=== PATIENT | female | born 1955 | race Caucasian/White ===

== ENCOUNTER 2023-03-06 18:29 | Inpatient (IN) | payer MEDICARE ==
[2023-03-06] MEDS ORDERED: diphenhydrAMINE 12.5 MG/5 ML UDCUP SSW PRN (20:04)
[2023-03-06] MEDS ORDERED: Lidocaine Viscous Sol 2% 15 ml UD Cup SSW PRN (20:04)
[2023-03-06 20:16] VITALS: BMI 41.5
[2023-03-06] MEDS ORDERED: Mag-Al Plus 1200/1200/120 MG (30 mL) UDCUP SSW PRN (20:33)
[2023-03-06] MEDS: HYDROcodone/Acetaminophen 10/325 mg Tablet PO PRN (21:00)
[2023-03-06] MEDS ORDERED: Amiodarone 200 MG TAB PO SCH ×2 (21:00)
[2023-03-06] MEDS: Apixaban 5 MG TAB PO SCH (21:01)
[2023-03-06] MEDS: Gabapentin 300 MG CAP PO SCH (21:01)
[2023-03-06] MEDS: traZODone HCl 50 MG TAB PO SCH (21:01)
[2023-03-06] MEDS: Atorvastatin Calcium 10 MG TAB PO SCH (21:01)
[2023-03-06] MEDS ORDERED: Ciprofloxacin 500 MG TAB PO SCH ×2 (22:00)
[2023-03-06] MEDS: clonazePAM 0.5 MG TAB PO PRN (23:33)
[2023-03-07] MEDS: Ipratropium/Albuterol 3 ML NEB NEB SCH ×4 (00:09→18:08)
[2023-03-07] MEDS: HYDROcodone/Acetaminophen 10/325 mg Tablet PO PRN ×3 (04:46→21:12)
[2023-03-07] MEDS: Ciprofloxacin 500 MG TAB PO SCH ×2 (04:47→21:10)
[2023-03-07 05:30] LABS: #Basophils 0.1 thou/uL (0.0-0.2); #Lymphocytes 1.1 thou/uL (1.20-3.40); #Monocytes 0.5 thou/uL (0.11-0.59); #Neutrophils 5.5 thou/uL (1.40-6.50); %Basophils 1.5 % (0.0-1.0); %Eosinophils 0.5 % (0.0-10.0); %Lymphocytes 15.8 % (21.0-51.0); %Monocytes 6.2 % (0.0-10.0); %Neutrophils 75.9 % (42.0-75.0); Hemoglobin 10.5 g/dL (12.0-16.0); Mean Corpuscular HGB CONC 31.8 g/dL (32.0-36.0); Mean Corpuscular Hemoglobin 30.6 pg (27.0-31.0); Mean Corpuscular Volume 96.1 fl (78.0-98.0); Mean Platelet Volume 5.5 fL (7.4-10.4); Platelet Count 368 10x3/uL (130-400); RBC Distribution Width 12.3 % (11.5-14.5); Red Blood Cell (RBC) Count 3.44 mill/uL (4.20-5.40); White Blood Cell (WBC) Count 7.2 10x3/uL (4.8-10.8)
[2023-03-07 05:42] LABS: Anion Gap 14 mmol/L (10-20); BUN (Urea Nitrogen) 15 mg/dL (9.8-20.1); Calc. Creatinine Clearance 102 mL/min (70-130); Calcium 8.9 mg/dL (7.8-10.44); Carbon Dioxide 23 mmol/L (23-31); Chloride 110 mmol/L (98-107); Estimated GFR 69; Glucose 103 mg/dL (80-115); Potassium 4.7 mmol/L (3.5-5.1); Sodium 142 mmol/L (136-145)
[2023-03-07] MEDS ORDERED: Ciprofloxacin 500 MG TAB PO SCH (06:00)
[2023-03-07] MEDS ORDERED: CIPRO PO SCH (06:00)
[2023-03-07] MEDS: Acetaminophen 325 MG TAB PO PRN ×2 (09:27→18:09)
[2023-03-07] MEDS: Venlafaxine HCl 25 MG TAB PO SCH (09:29)
[2023-03-07] MEDS: Lisinopril 20 MG TAB PO SCH (09:29)
[2023-03-07] MEDS: Apixaban 5 MG TAB PO SCH ×2 (09:30→21:10)
[2023-03-07] MEDS: Aspirin Chewable 81 MG TAB PO SCH (09:30)
[2023-03-07] MEDS: Gabapentin 300 MG CAP PO SCH ×2 (09:31→21:11)
[2023-03-07] MEDS: Amiodarone 200 MG TAB PO SCH ×2 (09:31→21:10)
[2023-03-07] MEDS: Atorvastatin Calcium 10 MG TAB PO SCH (21:10)
[2023-03-07] MEDS: traZODone HCl 50 MG TAB PO SCH (21:11)
[2023-03-07] MEDS: Nystatin 500,000 UNITS/5 ML UDCUP SSW SCH (21:11)
[2023-03-08] MEDS: Ipratropium/Albuterol 3 ML NEB NEB SCH ×5 (00:12→18:51)
[2023-03-08] MEDS: clonazePAM 0.5 MG TAB PO PRN ×2 (01:05→13:52)
[2023-03-08] MEDS: Acetaminophen 325 MG TAB PO PRN ×2 (01:05→10:32)
[2023-03-08] MEDS: HYDROcodone/Acetaminophen 10/325 mg Tablet PO PRN ×3 (05:34→20:25)
[2023-03-08] MEDS: Ciprofloxacin 500 MG TAB PO SCH ×2 (06:18→20:28)
[2023-03-08] MEDS: Amiodarone 200 MG TAB PO SCH ×2 (10:26→20:27)
[2023-03-08] MEDS: Apixaban 5 MG TAB PO SCH ×2 (10:27→20:29)
[2023-03-08] MEDS: Gabapentin 300 MG CAP PO SCH ×2 (10:28→20:27)
[2023-03-08] MEDS: Aspirin Chewable 81 MG TAB PO SCH (10:28)
[2023-03-08] MEDS: Venlafaxine HCl 25 MG TAB PO SCH (10:29)
[2023-03-08] MEDS: Lisinopril 20 MG TAB PO SCH (10:30)
[2023-03-08] MEDS: Nystatin 500,000 UNITS/5 ML UDCUP SSW SCH ×4 (13:22→21:05)
[2023-03-08] MEDS: Cyclobenzaprine 10 MG TAB PO PRN (13:51)
[2023-03-08] MEDS: Atorvastatin Calcium 10 MG TAB PO SCH (20:29)
[2023-03-08] MEDS: traZODone HCl 50 MG TAB PO SCH (20:29)
[2023-03-09] MEDS: Cyclobenzaprine 10 MG TAB PO PRN (02:56)
[2023-03-09] MEDS: clonazePAM 0.5 MG TAB PO PRN (02:56)
[2023-03-09] MEDS: Ipratropium/Albuterol 3 ML NEB NEB SCH ×4 (02:58→20:00)
[2023-03-09] MEDS: Ciprofloxacin 500 MG TAB PO SCH ×2 (05:47→20:09)
[2023-03-09] MEDS ORDERED: FLU VACC QS2023(65UP)/MF59C/PF 60 MCG/0.5 ML SYRINGE IM ONE (09:00)
[2023-03-09] MEDS ORDERED: Metoprolol Tartrate 25 MG TAB PO SCH ×3 (10:00→21:00)
[2023-03-09] MEDS: Venlafaxine HCl 25 MG TAB PO SCH (10:25)
[2023-03-09] MEDS: HYDROcodone/Acetaminophen 10/325 mg Tablet PO SCH ×3 (10:44→22:43)
[2023-03-09] MEDS: Gabapentin 300 MG CAP PO SCH ×2 (10:45→20:34)
[2023-03-09] MEDS: Apixaban 5 MG TAB PO SCH ×2 (10:46→20:29)
[2023-03-09] MEDS: Amiodarone 200 MG TAB PO SCH ×2 (10:46→20:28)
[2023-03-09] MEDS: Lisinopril 20 MG TAB PO SCH (10:47)
[2023-03-09] MEDS: Nystatin 500,000 UNITS/5 ML UDCUP SSW SCH ×4 (10:47→20:27)
[2023-03-09] MEDS: Aspirin Chewable 81 MG TAB PO SCH (10:47)
[2023-03-09] MEDS: Acetaminophen 325 MG TAB PO PRN (20:00)
[2023-03-09] MEDS: traZODone HCl 50 MG TAB PO SCH (20:27)
[2023-03-09] MEDS: Metoprolol Tartrate 25 MG TAB PO SCH (20:28)
[2023-03-09] MEDS: Atorvastatin Calcium 10 MG TAB PO SCH (20:28)
[2023-03-10] MEDS: Acetaminophen 325 MG TAB PO PRN ×2 (00:39→18:11)
[2023-03-10] MEDS: Ipratropium/Albuterol 3 ML NEB NEB SCH ×4 (01:10→20:46)
[2023-03-10] MEDS: clonazePAM 0.5 MG TAB PO PRN (02:59)
[2023-03-10] MEDS: Cyclobenzaprine 10 MG TAB PO PRN ×2 (02:59→16:48)
[2023-03-10] MEDS: HYDROcodone/Acetaminophen 10/325 mg Tablet PO SCH ×4 (04:06→22:08)
[2023-03-10] MEDS ORDERED: HYDROcodone/Acetaminophen 10/325 mg Tablet PO PRN (09:27)
[2023-03-10] MEDS: Gabapentin 300 MG CAP PO SCH ×2 (09:55→20:38)
[2023-03-10] MEDS: Nystatin 500,000 UNITS/5 ML UDCUP SSW SCH ×4 (09:55→20:38)
[2023-03-10] MEDS: Ondansetron ODT 4 MG TAB PO PRN (09:56)
[2023-03-10] MEDS: Lisinopril 20 MG TAB PO SCH (09:56)
[2023-03-10] MEDS: Amiodarone 200 MG TAB PO SCH ×2 (09:56→20:40)
[2023-03-10] MEDS: Apixaban 5 MG TAB PO SCH ×2 (09:56→20:39)
[2023-03-10] MEDS: Metoprolol Tartrate 25 MG TAB PO SCH ×2 (09:56→20:40)
[2023-03-10] MEDS: Aspirin Chewable 81 MG TAB PO SCH (09:57)
[2023-03-10] MEDS ORDERED: Fluticasone Propionate Nasal Spray 16 gm Bottle NASAL SCH (12:30)
[2023-03-10] MEDS: traZODone HCl 50 MG TAB PO SCH (20:39)
[2023-03-10] MEDS: Atorvastatin Calcium 10 MG TAB PO SCH (20:40)
[2023-03-11] MEDS: clonazePAM 0.5 MG TAB PO PRN ×3 (00:23→20:43)
[2023-03-11] MEDS: Cyclobenzaprine 10 MG TAB PO PRN ×2 (00:23→08:58)
[2023-03-11] MEDS: Ipratropium/Albuterol 3 ML NEB NEB SCH ×4 (00:27→17:21)
[2023-03-11] MEDS: Acetaminophen 325 MG TAB PO PRN (00:32)
[2023-03-11] MEDS: HYDROcodone/Acetaminophen 10/325 mg Tablet PO SCH ×4 (03:42→21:42)
[2023-03-11] MEDS: Gabapentin 300 MG CAP PO SCH ×2 (08:55→20:43)
[2023-03-11] MEDS: Metoprolol Tartrate 25 MG TAB PO SCH ×2 (08:56→20:42)
[2023-03-11] MEDS: Lisinopril 20 MG TAB PO SCH (08:57)
[2023-03-11] MEDS: Apixaban 5 MG TAB PO SCH ×2 (08:57→20:43)
[2023-03-11] MEDS: Amiodarone 200 MG TAB PO SCH ×2 (08:57→20:43)
[2023-03-11] MEDS: Nystatin 500,000 UNITS/5 ML UDCUP SSW SCH ×4 (08:58→20:43)
[2023-03-11] MEDS: Aspirin Chewable 81 MG TAB PO SCH (08:58)
[2023-03-11] MEDS: Fluticasone Propionate Nasal Spray 16 gm Bottle NASAL SCH (09:00)
[2023-03-11] MEDS: traZODone HCl 50 MG TAB PO SCH (20:42)
[2023-03-11] MEDS: Atorvastatin Calcium 10 MG TAB PO SCH (20:42)
[2023-03-12] MEDS: Ipratropium/Albuterol 3 ML NEB NEB SCH ×4 (00:04→18:08)
[2023-03-12] MEDS: HYDROcodone/Acetaminophen 10/325 mg Tablet PO SCH ×4 (03:04→21:14)
[2023-03-12] MEDS: Lisinopril 20 MG TAB PO SCH (09:06)
[2023-03-12] MEDS: Apixaban 5 MG TAB PO SCH ×2 (09:06→21:16)
[2023-03-12] MEDS: Gabapentin 300 MG CAP PO SCH ×2 (09:06→21:15)
[2023-03-12] MEDS: Metoprolol Tartrate 25 MG TAB PO SCH ×2 (09:06→21:15)
[2023-03-12] MEDS: Fluticasone Propionate Nasal Spray 16 gm Bottle NASAL SCH (09:07)
[2023-03-12] MEDS: Aspirin Chewable 81 MG TAB PO SCH (09:07)
[2023-03-12] MEDS: Nystatin 500,000 UNITS/5 ML UDCUP SSW SCH ×4 (09:08→21:13)
[2023-03-12] MEDS: Amiodarone 200 MG TAB PO SCH ×2 (09:08→21:15)
[2023-03-12 12:43] LABS: #Basophils 0.1 thou/uL (0.0-0.2); #Eosinphils 0.4 thou/uL (0.0-0.7); #Lymphocytes 2.1 thou/uL (1.20-3.40); #Monocytes 0.8 thou/uL (0.11-0.59); #Neutrophils 5.2 thou/uL (1.40-6.50); %Basophils 0.7 % (0.0-1.0); %Eosinophils 4.5 % (0.0-10.0); %Lymphocytes 24.3 % (21.0-51.0); %Neutrophils 61.5 % (42.0-75.0); Hematocrit 28.4 % (36.0-47.0); Hemoglobin 9.2 g/dL (12.0-16.0); Mean Corpuscular HGB CONC 32.3 g/dL (32.0-36.0); Mean Corpuscular Hemoglobin 30.7 pg (27.0-31.0); Mean Corpuscular Volume 95.3 fl (78.0-98.0); Mean Platelet Volume 5.5 fL (7.4-10.4); Platelet Count 306 10x3/uL (130-400); RBC Distribution Width 12.5 % (11.5-14.5); Red Blood Cell (RBC) Count 2.98 mill/uL (4.20-5.40); White Blood Cell (WBC) Count 8.5 10x3/uL (4.8-10.8)
[2023-03-12 12:59] LABS: Anion Gap 14 mmol/L (10-20); BUN (Urea Nitrogen) 10 mg/dL (9.8-20.1); Calc. Creatinine Clearance 124 mL/min (70-130); Calcium 8.2 mg/dL (7.8-10.44); Carbon Dioxide 26 mmol/L (23-31); Chloride 104 mmol/L (98-107); Estimated GFR 88; Glucose 142 mg/dL (80-115); Potassium 3.2 mmol/L (3.5-5.1); Sodium 141 mmol/L (136-145)
[2023-03-12] MEDS ORDERED: Potassium Chloride 20 MEQ TAB PO SCH (15:30)
[2023-03-12] MEDS: traZODone HCl 50 MG TAB PO SCH (21:14)
[2023-03-12] MEDS: Atorvastatin Calcium 10 MG TAB PO SCH (21:15)
[2023-03-13] MEDS: Ipratropium/Albuterol 3 ML NEB NEB SCH ×4 (01:47→21:13)
[2023-03-13] MEDS: HYDROcodone/Acetaminophen 10/325 mg Tablet PO SCH ×4 (04:59→21:21)
[2023-03-13] MEDS: Metoprolol Tartrate 25 MG TAB PO SCH ×2 (09:21→21:22)
[2023-03-13] MEDS: Aspirin Chewable 81 MG TAB PO SCH (09:21)
[2023-03-13] MEDS: Lisinopril 20 MG TAB PO SCH (09:21)
[2023-03-13] MEDS: Fluticasone Propionate Nasal Spray 16 gm Bottle NASAL SCH (09:21)
[2023-03-13] MEDS: Gabapentin 300 MG CAP PO SCH ×2 (09:22→21:22)
[2023-03-13] MEDS: Potassium Chloride 20 MEQ TAB PO SCH (09:23)
[2023-03-13] MEDS: Amiodarone 200 MG TAB PO SCH ×2 (09:23→21:23)
[2023-03-13] MEDS: Apixaban 5 MG TAB PO SCH ×2 (09:23→21:22)
[2023-03-13] MEDS: Nystatin 500,000 UNITS/5 ML UDCUP SSW SCH ×4 (09:24→21:23)
[2023-03-13] MEDS: traZODone HCl 50 MG TAB PO SCH (21:21)
[2023-03-13] MEDS: Amoxicillin/Potassium Clav 875 MG TAB PO SCH (21:21)
[2023-03-13] MEDS: clonazePAM 0.5 MG TAB PO PRN (21:21)
[2023-03-13] MEDS: Atorvastatin Calcium 10 MG TAB PO SCH (21:22)
[2023-03-13] MEDS: Guaifenesin DM 100-10/5 ML UDCUP PO PRN (22:04)
[2023-03-14] MEDS: Ipratropium/Albuterol 3 ML NEB NEB SCH ×4 (01:34→18:22)
[2023-03-14] MEDS: HYDROcodone/Acetaminophen 10/325 mg Tablet PO SCH ×4 (04:13→21:23)
[2023-03-14] MEDS: Fluticasone Propionate Nasal Spray 16 gm Bottle NASAL SCH (09:51)
[2023-03-14] MEDS: Amoxicillin/Potassium Clav 875 MG TAB PO SCH ×2 (09:53→21:06)
[2023-03-14] MEDS: Lisinopril 20 MG TAB PO SCH (09:54)
[2023-03-14] MEDS: Saccharomyces boulardii 250 MG CAP PO SCH (09:54)
[2023-03-14] MEDS: Apixaban 5 MG TAB PO SCH ×2 (09:54→21:07)
[2023-03-14] MEDS: Aspirin Chewable 81 MG TAB PO SCH (09:54)
[2023-03-14] MEDS: Gabapentin 300 MG CAP PO SCH ×2 (09:57→21:23)
[2023-03-14] MEDS: Potassium Chloride 20 MEQ TAB PO SCH (09:57)
[2023-03-14] MEDS: Amiodarone 200 MG TAB PO SCH (09:57)
[2023-03-14] MEDS: Nystatin 500,000 UNITS/5 ML UDCUP SSW SCH ×4 (09:58→21:06)
[2023-03-14] MEDS: Metoprolol Tartrate 25 MG TAB PO SCH ×2 (09:58→21:06)
[2023-03-14] MEDS: Ketorolac Tromethamine 60 MG/2 ML VIAL IM PRN (13:30)
[2023-03-14] MEDS: traZODone HCl 50 MG TAB PO SCH (21:06)
[2023-03-14] MEDS: Atorvastatin Calcium 10 MG TAB PO SCH (21:07)
[2023-03-15] MEDS: Acetaminophen 325 MG TAB PO PRN (01:52)
[2023-03-15] MEDS: Ipratropium/Albuterol 3 ML NEB NEB SCH ×5 (01:53→18:50)
[2023-03-15] MEDS: clonazePAM 0.5 MG TAB PO PRN ×2 (01:53→21:20)
[2023-03-15] MEDS: HYDROcodone/Acetaminophen 10/325 mg Tablet PO SCH ×4 (04:54→22:16)
[2023-03-15] MEDS ORDERED: Amiodarone 200 MG TAB PO SCH (09:00)
[2023-03-15] MEDS: Fluticasone Propionate Nasal Spray 16 gm Bottle NASAL SCH ×2 (09:25→21:21)
[2023-03-15] MEDS: Apixaban 5 MG TAB PO SCH ×2 (09:47→21:20)
[2023-03-15] MEDS: Saccharomyces boulardii 250 MG CAP PO SCH (09:47)
[2023-03-15] MEDS: Potassium Chloride 20 MEQ TAB PO SCH (09:47)
[2023-03-15] MEDS: Nystatin 500,000 UNITS/5 ML UDCUP SSW SCH ×4 (09:47→21:19)
[2023-03-15] MEDS: Metoprolol Tartrate 25 MG TAB PO SCH ×2 (09:47→21:20)
[2023-03-15] MEDS: Amoxicillin/Potassium Clav 875 MG TAB PO SCH ×2 (09:47→21:20)
[2023-03-15] MEDS: Lisinopril 20 MG TAB PO SCH (09:48)
[2023-03-15] MEDS: Gabapentin 300 MG CAP PO SCH ×2 (09:48→21:20)
[2023-03-15] MEDS: Aspirin Chewable 81 MG TAB PO SCH (09:49)
[2023-03-15] MEDS: Amiodarone 200 MG TAB PO SCH (09:49)
[2023-03-15] MEDS: Ketorolac Tromethamine 60 MG/2 ML VIAL IM PRN (10:00)
[2023-03-15] MEDS: traZODone HCl 50 MG TAB PO SCH (21:19)
[2023-03-15] MEDS: Atorvastatin Calcium 10 MG TAB PO SCH (21:20)
[2023-03-15] MEDS: Guaifenesin DM 100-10/5 ML UDCUP PO PRN (21:27)
[2023-03-16] MEDS: Ipratropium/Albuterol 3 ML NEB NEB SCH ×4 (01:25→22:55)
[2023-03-16] MEDS: Acetaminophen 325 MG TAB PO PRN ×2 (01:25→13:47)
[2023-03-16] MEDS: Cyclobenzaprine 10 MG TAB PO PRN ×2 (01:26→13:47)
[2023-03-16] MEDS: HYDROcodone/Acetaminophen 10/325 mg Tablet PO SCH ×4 (04:04→22:57)
[2023-03-16 08:41] LABS: Potassium 3.8 mmol/L (3.5-5.1)
[2023-03-16] MEDS: Aspirin Chewable 81 MG TAB PO SCH (09:08)
[2023-03-16] MEDS: Gabapentin 300 MG CAP PO SCH ×2 (09:08→22:58)
[2023-03-16] MEDS: Potassium Chloride 20 MEQ TAB PO SCH (09:08)
[2023-03-16] MEDS: Apixaban 5 MG TAB PO SCH ×2 (09:08→22:58)
[2023-03-16] MEDS: Saccharomyces boulardii 250 MG CAP PO SCH (09:08)
[2023-03-16] MEDS: Metoprolol Tartrate 25 MG TAB PO SCH ×2 (09:08→22:59)
[2023-03-16] MEDS: Lisinopril 20 MG TAB PO SCH (09:09)
[2023-03-16] MEDS: Amoxicillin/Potassium Clav 875 MG TAB PO SCH ×2 (09:09→22:57)
[2023-03-16] MEDS: Amiodarone 200 MG TAB PO SCH (09:09)
[2023-03-16] MEDS: Nystatin 500,000 UNITS/5 ML UDCUP SSW SCH ×4 (09:10→22:56)
[2023-03-16] MEDS: Fluticasone Propionate Nasal Spray 16 gm Bottle NASAL SCH ×2 (09:10→22:56)
[2023-03-16] MEDS: Guaifenesin DM 100-10/5 ML UDCUP PO PRN (13:35)
[2023-03-16] MEDS: Ondansetron ODT 4 MG TAB PO PRN (22:55)
[2023-03-16] MEDS: traZODone HCl 50 MG TAB PO SCH (22:57)
[2023-03-16] MEDS: Atorvastatin Calcium 10 MG TAB PO SCH (22:58)
[2023-03-17] MEDS: HYDROcodone/Acetaminophen 10/325 mg Tablet PO SCH ×4 (06:45→21:24)
[2023-03-17] MEDS: Ipratropium/Albuterol 3 ML NEB NEB SCH ×4 (06:45→19:25)
[2023-03-17] MEDS: Fluticasone Propionate Nasal Spray 16 gm Bottle NASAL SCH ×2 (09:10→21:23)
[2023-03-17] MEDS: Potassium Chloride 20 MEQ TAB PO SCH (09:11)
[2023-03-17] MEDS: Gabapentin 300 MG CAP PO SCH ×2 (09:12→21:26)
[2023-03-17] MEDS: Apixaban 5 MG TAB PO SCH ×2 (09:13→21:24)
[2023-03-17] MEDS: Amiodarone 200 MG TAB PO SCH (09:13)
[2023-03-17] MEDS: Metoprolol Tartrate 25 MG TAB PO SCH ×2 (09:13→21:39)
[2023-03-17] MEDS: Saccharomyces boulardii 250 MG CAP PO SCH (09:13)
[2023-03-17] MEDS: Lisinopril 20 MG TAB PO SCH (09:13)
[2023-03-17] MEDS: Aspirin Chewable 81 MG TAB PO SCH (09:13)
[2023-03-17] MEDS: Amoxicillin/Potassium Clav 875 MG TAB PO SCH ×2 (09:14→21:24)
[2023-03-17] MEDS: Nystatin 500,000 UNITS/5 ML UDCUP SSW SCH ×4 (09:26→21:29)
[2023-03-17] MEDS: Guaifenesin DM 100-10/5 ML UDCUP PO PRN ×2 (16:26→21:39)
[2023-03-17] MEDS: Atorvastatin Calcium 10 MG TAB PO SCH (21:23)
[2023-03-17] MEDS: traZODone HCl 50 MG TAB PO SCH (21:24)
[2023-03-18] MEDS: Ipratropium/Albuterol 3 ML NEB NEB SCH ×4 (01:00→18:51)
[2023-03-18] MEDS: HYDROcodone/Acetaminophen 10/325 mg Tablet PO SCH ×4 (04:57→20:58)
[2023-03-18 05:12] LABS: Hematocrit 27.1 % (36.0-47.0); Hemoglobin 8.8 g/dL (12.0-16.0); Platelet Count 451 10x3/uL (130-400)
[2023-03-18] MEDS: Nystatin 500,000 UNITS/5 ML UDCUP SSW SCH ×4 (09:00→21:01)
[2023-03-18] MEDS: Fluticasone Propionate Nasal Spray 16 gm Bottle NASAL SCH ×2 (10:51→21:36)
[2023-03-18] MEDS: Gabapentin 300 MG CAP PO SCH ×2 (10:53→20:56)
[2023-03-18] MEDS: Metoprolol Tartrate 25 MG TAB PO SCH ×2 (10:54→20:59)
[2023-03-18] MEDS: Amiodarone 200 MG TAB PO SCH (10:54)
[2023-03-18] MEDS: Lisinopril 20 MG TAB PO SCH (10:54)
[2023-03-18] MEDS: Aspirin Chewable 81 MG TAB PO SCH (10:54)
[2023-03-18] MEDS: Potassium Chloride 20 MEQ TAB PO SCH (10:54)
[2023-03-18] MEDS: Amoxicillin/Potassium Clav 875 MG TAB PO SCH ×2 (10:54→20:57)
[2023-03-18] MEDS: Apixaban 5 MG TAB PO SCH ×2 (10:54→21:35)
[2023-03-18] MEDS: Saccharomyces boulardii 250 MG CAP PO SCH (10:54)
[2023-03-18] MEDS: Guaifenesin DM 100-10/5 ML UDCUP PO PRN ×2 (15:33→22:13)
[2023-03-18] MEDS: Atorvastatin Calcium 10 MG TAB PO SCH (20:59)
[2023-03-18] MEDS: clonazePAM 0.5 MG TAB PO PRN (21:00)
[2023-03-18] MEDS: Cyclobenzaprine 10 MG TAB PO PRN (21:00)
[2023-03-18] MEDS: traZODone HCl 50 MG TAB PO SCH (21:36)
[2023-03-18] MEDS: Ondansetron ODT 4 MG TAB PO PRN (22:13)
[2023-03-19] MEDS: Ipratropium/Albuterol 3 ML NEB NEB SCH ×4 (00:55→20:09)
[2023-03-19] MEDS: HYDROcodone/Acetaminophen 10/325 mg Tablet PO SCH ×4 (04:17→21:45)
[2023-03-19] MEDS: Amiodarone 200 MG TAB PO SCH (10:03)
[2023-03-19] MEDS: Amoxicillin/Potassium Clav 875 MG TAB PO SCH ×2 (10:04→21:45)
[2023-03-19] MEDS: Potassium Chloride 20 MEQ TAB PO SCH (10:04)
[2023-03-19] MEDS: Apixaban 5 MG TAB PO SCH ×2 (10:04→21:46)
[2023-03-19] MEDS: Aspirin Chewable 81 MG TAB PO SCH (10:04)
[2023-03-19] MEDS: Gabapentin 300 MG CAP PO SCH ×2 (10:05→21:46)
[2023-03-19] MEDS: Saccharomyces boulardii 250 MG CAP PO SCH (10:05)
[2023-03-19] MEDS: Fluticasone Propionate Nasal Spray 16 gm Bottle NASAL SCH ×2 (10:06→21:47)
[2023-03-19] MEDS: Metoprolol Tartrate 25 MG TAB PO SCH ×2 (10:06→21:46)
[2023-03-19] MEDS: Nystatin 500,000 UNITS/5 ML UDCUP SSW SCH ×4 (10:07→21:47)
[2023-03-19] MEDS: Lisinopril 20 MG TAB PO SCH (10:17)
[2023-03-19] MEDS: clonazePAM 0.5 MG TAB PO PRN ×2 (10:20→20:10)
[2023-03-19] MEDS: Guaifenesin DM 100-10/5 ML UDCUP PO PRN (14:34)
[2023-03-19] MEDS: traZODone HCl 50 MG TAB PO SCH (21:46)
[2023-03-19] MEDS: Atorvastatin Calcium 10 MG TAB PO SCH (21:46)
[2023-03-20] MEDS: Ipratropium/Albuterol 3 ML NEB NEB SCH ×4 (01:15→23:31)
[2023-03-20] MEDS: HYDROcodone/Acetaminophen 10/325 mg Tablet PO SCH ×4 (04:12→22:14)
[2023-03-20] MEDS: Amiodarone 200 MG TAB PO SCH (08:30)
[2023-03-20] MEDS: Amoxicillin/Potassium Clav 875 MG TAB PO SCH ×2 (08:30→22:13)
[2023-03-20] MEDS: Apixaban 5 MG TAB PO SCH ×2 (08:31→22:13)
[2023-03-20] MEDS: Aspirin Chewable 81 MG TAB PO SCH (08:31)
[2023-03-20] MEDS: Gabapentin 300 MG CAP PO SCH ×2 (08:31→22:13)
[2023-03-20] MEDS: Metoprolol Tartrate 25 MG TAB PO SCH ×2 (08:32→22:13)
[2023-03-20] MEDS: Saccharomyces boulardii 250 MG CAP PO SCH (08:32)
[2023-03-20] MEDS: Nystatin 500,000 UNITS/5 ML UDCUP SSW SCH ×4 (08:32→22:12)
[2023-03-20] MEDS: Lisinopril 20 MG TAB PO SCH (08:32)
[2023-03-20] MEDS: Potassium Chloride 20 MEQ TAB PO SCH (08:33)
[2023-03-20] MEDS: Fluticasone Propionate Nasal Spray 16 gm Bottle NASAL SCH ×2 (08:34→22:12)
[2023-03-20] MEDS: Guaifenesin DM 100-10/5 ML UDCUP PO PRN ×2 (11:10→17:34)
[2023-03-20] MEDS: Ketorolac Tromethamine 60 MG/2 ML VIAL IM PRN (13:30)
[2023-03-20] MEDS ORDERED: Venlafaxine HCl XR 75 MG CAP PO SCH (17:00)
[2023-03-20] MEDS: traZODone HCl 50 MG TAB PO SCH (22:12)
[2023-03-20] MEDS: Atorvastatin Calcium 10 MG TAB PO SCH (22:13)
[2023-03-20] MEDS: Cyclobenzaprine 10 MG TAB PO PRN (22:13)
[2023-03-20] MEDS: clonazePAM 0.5 MG TAB PO PRN (22:14)
[2023-03-21 05:01] LABS: #Basophils 0.1 thou/uL (0.0-0.2); #Eosinphils 0.4 thou/uL (0.0-0.7); #Monocytes 0.7 thou/uL (0.11-0.59); #Neutrophils 3.7 thou/uL (1.40-6.50); %Eosinophils 4.7 % (0.0-10.0); %Lymphocytes 38.1 % (21.0-51.0); %Monocytes 8.8 % (0.0-10.0); %Neutrophils 47.4 % (42.0-75.0); Hematocrit 28.9 % (36.0-47.0); Hemoglobin 9.3 g/dL (12.0-16.0); Mean Corpuscular HGB CONC 32.2 g/dL (32.0-36.0); Mean Corpuscular Hemoglobin 30.3 pg (27.0-31.0); Mean Corpuscular Volume 94.1 fl (78.0-98.0); Mean Platelet Volume 5.1 fL (7.4-10.4); Platelet Count 467 10x3/uL (130-400); RBC Distribution Width 13.1 % (11.5-14.5); Red Blood Cell (RBC) Count 3.07 mill/uL (4.20-5.40); White Blood Cell (WBC) Count 7.9 10x3/uL (4.8-10.8)
[2023-03-21] MEDS: HYDROcodone/Acetaminophen 10/325 mg Tablet PO SCH ×4 (06:42→21:52)
[2023-03-21] MEDS: Ipratropium/Albuterol 3 ML NEB NEB SCH ×5 (06:44→21:52)
[2023-03-21] MEDS: Saccharomyces boulardii 250 MG CAP PO SCH ×2 (10:36→10:38)
[2023-03-21] MEDS: Gabapentin 300 MG CAP PO SCH ×2 (10:37→20:49)
[2023-03-21] MEDS: Amoxicillin/Potassium Clav 875 MG TAB PO SCH ×2 (10:38→20:55)
[2023-03-21] MEDS: Aspirin Chewable 81 MG TAB PO SCH (10:38)
[2023-03-21] MEDS: Potassium Chloride 20 MEQ TAB PO SCH (10:38)
[2023-03-21] MEDS: Amiodarone 200 MG TAB PO SCH (10:38)
[2023-03-21] MEDS: Metoprolol Tartrate 25 MG TAB PO SCH ×2 (10:38→20:49)
[2023-03-21] MEDS: Apixaban 5 MG TAB PO SCH ×2 (10:39→20:48)
[2023-03-21] MEDS: Fluticasone Propionate Nasal Spray 16 gm Bottle NASAL SCH ×2 (10:40→21:52)
[2023-03-21] MEDS: Nystatin 500,000 UNITS/5 ML UDCUP SSW SCH ×4 (10:40→20:53)
[2023-03-21] MEDS: Venlafaxine HCl XR 75 MG CAP PO SCH (10:40)
[2023-03-21] MEDS: Lisinopril 20 MG TAB PO SCH (10:41)
[2023-03-21] MEDS: clonazePAM 0.5 MG TAB PO PRN ×2 (10:45→21:52)
[2023-03-21] MEDS: Cyclobenzaprine 10 MG TAB PO PRN ×2 (10:56→16:29)
[2023-03-21] MEDS: Guaifenesin DM 100-10/5 ML UDCUP PO PRN ×2 (11:19→21:52)
[2023-03-21] MEDS: traZODone HCl 50 MG TAB PO SCH (20:48)
[2023-03-21] MEDS: Atorvastatin Calcium 10 MG TAB PO SCH (20:49)
[2023-03-22] MEDS: Ipratropium/Albuterol 3 ML NEB NEB SCH ×4 (04:23→22:13)
[2023-03-22] MEDS: HYDROcodone/Acetaminophen 10/325 mg Tablet PO SCH ×4 (04:24→22:03)
[2023-03-22] MEDS: Aspirin Chewable 81 MG TAB PO SCH (09:39)
[2023-03-22] MEDS: Venlafaxine HCl XR 75 MG CAP PO SCH (09:40)
[2023-03-22] MEDS: Gabapentin 300 MG CAP PO SCH ×2 (09:40→20:39)
[2023-03-22] MEDS: Amiodarone 200 MG TAB PO SCH (09:40)
[2023-03-22] MEDS: Apixaban 5 MG TAB PO SCH ×2 (09:40→20:40)
[2023-03-22] MEDS: Fluticasone Propionate Nasal Spray 16 gm Bottle NASAL SCH ×2 (09:41→20:42)
[2023-03-22] MEDS: Nystatin 500,000 UNITS/5 ML UDCUP SSW SCH ×4 (09:41→20:38)
[2023-03-22] MEDS: Lisinopril 20 MG TAB PO SCH (09:41)
[2023-03-22] MEDS: Metoprolol Tartrate 25 MG TAB PO SCH ×2 (09:41→20:40)
[2023-03-22] MEDS: Saccharomyces boulardii 250 MG CAP PO SCH (09:42)
[2023-03-22] MEDS: Potassium Chloride 20 MEQ TAB PO SCH (09:43)
[2023-03-22] MEDS: Guaifenesin DM 100-10/5 ML UDCUP PO PRN ×2 (09:50→16:22)
[2023-03-22] MEDS: Amoxicillin/Potassium Clav 875 MG TAB PO SCH ×2 (09:55→20:40)
[2023-03-22] MEDS: Cyclobenzaprine 10 MG TAB PO PRN (09:58)
[2023-03-22] MEDS: Atorvastatin Calcium 10 MG TAB PO SCH (20:41)
[2023-03-22] MEDS: traZODone HCl 50 MG TAB PO SCH (20:41)
[2023-03-22] MEDS: clonazePAM 0.5 MG TAB PO PRN (22:03)
[2023-03-23] MEDS: HYDROcodone/Acetaminophen 10/325 mg Tablet PO SCH ×4 (03:53→22:03)
[2023-03-23] MEDS: Ipratropium/Albuterol 3 ML NEB NEB SCH ×4 (03:54→22:04)
[2023-03-23] MEDS ORDERED: Mometasone/Formoterol 200/5 60 PUFF INH SCH (07:30)
[2023-03-23] MEDS: Venlafaxine HCl XR 75 MG CAP PO SCH (09:52)
[2023-03-23] MEDS: Fluticasone Propionate Nasal Spray 16 gm Bottle NASAL SCH ×2 (09:52→21:07)
[2023-03-23] MEDS: Nystatin 500,000 UNITS/5 ML UDCUP SSW SCH ×4 (09:52→21:07)
[2023-03-23] MEDS: Amiodarone 200 MG TAB PO SCH (09:55)
[2023-03-23] MEDS: Cholecalciferol 1,000 UNITS (25 MCG) TAB PO SCH (09:55)
[2023-03-23] MEDS: Potassium Chloride 20 MEQ TAB PO SCH (09:55)
[2023-03-23] MEDS: Aspirin Chewable 81 MG TAB PO SCH (09:55)
[2023-03-23] MEDS: Apixaban 5 MG TAB PO SCH ×2 (09:55→21:05)
[2023-03-23] MEDS: Metoprolol Tartrate 25 MG TAB PO SCH ×2 (09:55→21:05)
[2023-03-23] MEDS: Lisinopril 20 MG TAB PO SCH (09:55)
[2023-03-23] MEDS: Amoxicillin/Potassium Clav 875 MG TAB PO SCH (09:55)
[2023-03-23] MEDS: Gabapentin 300 MG CAP PO SCH ×2 (09:56→21:05)
[2023-03-23] MEDS: traZODone HCl 50 MG TAB PO SCH (21:04)
[2023-03-23] MEDS: Atorvastatin Calcium 10 MG TAB PO SCH (21:05)
[2023-03-23] MEDS: Mometasone/Formoterol 200/5 60 PUFF INH SCH (21:06)
[2023-03-23] MEDS: Cyclobenzaprine 10 MG TAB PO PRN (21:13)
[2023-03-23] MEDS: clonazePAM 0.5 MG TAB PO PRN (21:13)
[2023-03-24] MEDS: HYDROcodone/Acetaminophen 10/325 mg Tablet PO SCH ×4 (04:11→21:59)
[2023-03-24] MEDS: Ipratropium/Albuterol 3 ML NEB NEB SCH ×4 (04:12→22:01)
[2023-03-24] MEDS: Mometasone/Formoterol 200/5 60 PUFF INH SCH ×2 (06:06→18:09)
[2023-03-24] MEDS: Fluticasone Propionate Nasal Spray 16 gm Bottle NASAL SCH ×2 (09:40→20:51)
[2023-03-24] MEDS: Nystatin 500,000 UNITS/5 ML UDCUP SSW SCH ×4 (09:41→20:54)
[2023-03-24] MEDS: Potassium Chloride 20 MEQ TAB PO SCH (09:41)
[2023-03-24] MEDS: Lisinopril 20 MG TAB PO SCH (09:41)
[2023-03-24] MEDS: Amiodarone 200 MG TAB PO SCH (09:42)
[2023-03-24] MEDS: Cholecalciferol 1,000 UNITS (25 MCG) TAB PO SCH (09:42)
[2023-03-24] MEDS: Saccharomyces boulardii 250 MG CAP PO SCH (09:42)
[2023-03-24] MEDS: Metoprolol Tartrate 25 MG TAB PO SCH ×2 (09:42→20:49)
[2023-03-24] MEDS: Venlafaxine HCl XR 75 MG CAP PO SCH ×2 (09:42→20:49)
[2023-03-24] MEDS: Apixaban 5 MG TAB PO SCH ×2 (09:42→20:49)
[2023-03-24] MEDS: Aspirin Chewable 81 MG TAB PO SCH (09:42)
[2023-03-24] MEDS: Gabapentin 300 MG CAP PO SCH ×2 (09:43→20:47)
[2023-03-24] MEDS: Cyclobenzaprine 10 MG TAB PO PRN ×2 (12:47→20:47)
[2023-03-24] MEDS: Acetaminophen 325 MG TAB PO PRN (20:45)
[2023-03-24] MEDS: traZODone HCl 50 MG TAB PO SCH (20:48)
[2023-03-24] MEDS: Atorvastatin Calcium 10 MG TAB PO SCH (20:52)
[2023-03-24] MEDS: clonazePAM 0.5 MG TAB PO PRN (22:00)
[2023-03-24] MEDS: Guaifenesin DM 100-10/5 ML UDCUP PO PRN (22:07)
[2023-03-25] MEDS: Ipratropium/Albuterol 3 ML NEB NEB SCH ×4 (04:30→22:14)
[2023-03-25] MEDS: HYDROcodone/Acetaminophen 10/325 mg Tablet PO SCH ×4 (04:31→22:11)
[2023-03-25] MEDS: Mometasone/Formoterol 200/5 60 PUFF INH SCH ×2 (10:02→18:08)
[2023-03-25] MEDS: Fluticasone Propionate Nasal Spray 16 gm Bottle NASAL SCH ×2 (10:07→22:13)
[2023-03-25] MEDS: Nystatin 500,000 UNITS/5 ML UDCUP SSW SCH ×4 (10:08→22:14)
[2023-03-25] MEDS: Saccharomyces boulardii 250 MG CAP PO SCH (10:08)
[2023-03-25] MEDS: Apixaban 5 MG TAB PO SCH ×2 (10:09→22:09)
[2023-03-25] MEDS: Aspirin Chewable 81 MG TAB PO SCH (10:09)
[2023-03-25] MEDS: Amiodarone 200 MG TAB PO SCH (10:09)
[2023-03-25] MEDS: Lisinopril 20 MG TAB PO SCH (10:09)
[2023-03-25] MEDS: Potassium Chloride 20 MEQ TAB PO SCH (10:09)
[2023-03-25] MEDS: Metoprolol Tartrate 25 MG TAB PO SCH ×2 (10:10→22:13)
[2023-03-25] MEDS: Venlafaxine HCl XR 75 MG CAP PO SCH (10:11)
[2023-03-25] MEDS: Gabapentin 300 MG CAP PO SCH ×2 (10:11→22:12)
[2023-03-25] MEDS: Cholecalciferol 1,000 UNITS (25 MCG) TAB PO SCH (10:12)
[2023-03-25] MEDS: Cyclobenzaprine 10 MG TAB PO PRN (18:07)
[2023-03-25] MEDS: traZODone HCl 50 MG TAB PO SCH (22:12)
[2023-03-25] MEDS: Atorvastatin Calcium 10 MG TAB PO SCH (22:12)
[2023-03-26] MEDS: Ipratropium/Albuterol 3 ML NEB NEB SCH ×4 (04:00→22:15)
[2023-03-26] MEDS: HYDROcodone/Acetaminophen 10/325 mg Tablet PO SCH ×4 (04:00→22:14)
[2023-03-26] MEDS: Mometasone/Formoterol 200/5 60 PUFF INH SCH ×2 (08:55→18:01)
[2023-03-26] MEDS: Aspirin Chewable 81 MG TAB PO SCH (08:57)
[2023-03-26] MEDS: Nystatin 500,000 UNITS/5 ML UDCUP SSW SCH ×4 (08:57→20:19)
[2023-03-26] MEDS: Metoprolol Tartrate 25 MG TAB PO SCH ×2 (08:57→20:18)
[2023-03-26] MEDS: Saccharomyces boulardii 250 MG CAP PO SCH (08:57)
[2023-03-26] MEDS: Apixaban 5 MG TAB PO SCH ×2 (08:57→20:17)
[2023-03-26] MEDS: Gabapentin 300 MG CAP PO SCH ×2 (08:57→20:18)
[2023-03-26] MEDS: Venlafaxine HCl XR 75 MG CAP PO SCH (08:58)
[2023-03-26] MEDS: Cholecalciferol 1,000 UNITS (25 MCG) TAB PO SCH (08:59)
[2023-03-26] MEDS: Amiodarone 200 MG TAB PO SCH (08:59)
[2023-03-26] MEDS: Potassium Chloride 20 MEQ TAB PO SCH (08:59)
[2023-03-26] MEDS: Fluticasone Propionate Nasal Spray 16 gm Bottle NASAL SCH ×2 (09:00→20:19)
[2023-03-26] MEDS: Lisinopril 20 MG TAB PO SCH (09:07)
[2023-03-26] MEDS: Guaifenesin DM 100-10/5 ML UDCUP PO PRN (09:37)
[2023-03-26] MEDS: traZODone HCl 50 MG TAB PO SCH (20:16)
[2023-03-26] MEDS: Atorvastatin Calcium 10 MG TAB PO SCH (20:18)
[2023-03-27] MEDS: Ipratropium/Albuterol 3 ML NEB NEB SCH ×4 (04:00→22:35)
[2023-03-27] MEDS: HYDROcodone/Acetaminophen 10/325 mg Tablet PO SCH ×4 (04:00→22:30)
[2023-03-27 05:20] LABS: #Basophils 0.1 thou/uL (0.0-0.2); #Eosinphils 0.2 thou/uL (0.0-0.7); #Lymphocytes 3.5 thou/uL (1.20-3.40); #Monocytes 0.8 thou/uL (0.11-0.59); #Neutrophils 6.2 thou/uL (1.40-6.50); %Basophils 1.1 % (0.0-1.0); %Eosinophils 2.3 % (0.0-10.0); %Lymphocytes 32.3 % (21.0-51.0); %Monocytes 7.5 % (0.0-10.0); %Neutrophils 56.8 % (42.0-75.0); Hemoglobin 9.4 g/dL (12.0-16.0); Mean Corpuscular HGB CONC 32.3 g/dL (32.0-36.0); Mean Corpuscular Hemoglobin 30.8 pg (27.0-31.0); Mean Corpuscular Volume 95.2 fl (78.0-98.0); Mean Platelet Volume 5.7 fL (7.4-10.4); Platelet Count 343 10x3/uL (130-400); RBC Distribution Width 14.5 % (11.5-14.5); Red Blood Cell (RBC) Count 3.04 mill/uL (4.20-5.40); White Blood Cell (WBC) Count 10.9 10x3/uL (4.8-10.8)
[2023-03-27 05:39] LABS: Anion Gap 14 mmol/L (10-20); BUN (Urea Nitrogen) 13 mg/dL (9.8-20.1); Calc. Creatinine Clearance 106 mL/min (70-130); Calcium 9.3 mg/dL (7.8-10.44); Carbon Dioxide 25 mmol/L (23-31); Chloride 107 mmol/L (98-107); Estimated GFR 72; Glucose 126 mg/dL (80-115); Potassium 3.9 mmol/L (3.5-5.1); Sodium 142 mmol/L (136-145)
[2023-03-27] MEDS: Mometasone/Formoterol 200/5 60 PUFF INH SCH ×2 (06:00→18:21)
[2023-03-27] MEDS ORDERED: Collagenase 250 UNITS/GM Ointment 30 GM TUBE TOP SCH ×3 (09:00)
[2023-03-27] MEDS: Fluticasone Propionate Nasal Spray 16 gm Bottle NASAL SCH ×2 (09:28→20:39)
[2023-03-27] MEDS: Lisinopril 20 MG TAB PO SCH (09:29)
[2023-03-27] MEDS: Nystatin 500,000 UNITS/5 ML UDCUP SSW SCH ×4 (09:29→20:38)
[2023-03-27] MEDS: Saccharomyces boulardii 250 MG CAP PO SCH (09:29)
[2023-03-27] MEDS: Aspirin Chewable 81 MG TAB PO SCH (09:29)
[2023-03-27] MEDS: Apixaban 5 MG TAB PO SCH ×2 (09:31→20:38)
[2023-03-27] MEDS: Gabapentin 300 MG CAP PO SCH ×2 (09:31→20:37)
[2023-03-27] MEDS: Venlafaxine HCl XR 75 MG CAP PO SCH (09:32)
[2023-03-27] MEDS: Amiodarone 200 MG TAB PO SCH (09:32)
[2023-03-27] MEDS: Potassium Chloride 20 MEQ TAB PO SCH (09:32)
[2023-03-27] MEDS: Cholecalciferol 1,000 UNITS (25 MCG) TAB PO SCH (09:32)
[2023-03-27] MEDS: Metoprolol Tartrate 25 MG TAB PO SCH ×2 (09:32→20:36)
[2023-03-27] MEDS: traZODone HCl 50 MG TAB PO SCH (20:36)
[2023-03-27] MEDS: Atorvastatin Calcium 10 MG TAB PO SCH (20:37)
[2023-03-27] MEDS: Guaifenesin DM 100-10/5 ML UDCUP PO PRN (20:38)
[2023-03-27] MEDS: Cyclobenzaprine 10 MG TAB PO PRN (20:46)
[2023-03-27] MEDS: clonazePAM 0.5 MG TAB PO PRN (20:46)
[2023-03-28] MEDS: HYDROcodone/Acetaminophen 10/325 mg Tablet PO SCH ×4 (04:24→22:36)
[2023-03-28] MEDS: Ipratropium/Albuterol 3 ML NEB NEB SCH ×4 (04:25→22:37)
[2023-03-28 05:33] LABS: #Basophils 0.1 thou/uL (0.0-0.2); #Eosinphils 0.2 thou/uL (0.0-0.7); #Lymphocytes 3.5 thou/uL (1.20-3.40); #Monocytes 0.7 thou/uL (0.11-0.59); #Neutrophils 5.1 thou/uL (1.40-6.50); %Eosinophils 2.2 % (0.0-10.0); %Lymphocytes 36.3 % (21.0-51.0); %Monocytes 7.4 % (0.0-10.0); %Neutrophils 53.1 % (42.0-75.0); Hematocrit 29.3 % (36.0-47.0); Hemoglobin 9.2 g/dL (12.0-16.0); Mean Corpuscular HGB CONC 31.5 g/dL (32.0-36.0); Mean Corpuscular Hemoglobin 30.1 pg (27.0-31.0); Mean Corpuscular Volume 95.5 fl (78.0-98.0); Mean Platelet Volume 5.4 fL (7.4-10.4); Platelet Count 337 10x3/uL (130-400); RBC Distribution Width 14.3 % (11.5-14.5); Red Blood Cell (RBC) Count 3.07 mill/uL (4.20-5.40); White Blood Cell (WBC) Count 9.6 10x3/uL (4.8-10.8)
[2023-03-28] MEDS: Nystatin 500,000 UNITS/5 ML UDCUP SSW SCH ×4 (10:04→20:58)
[2023-03-28] MEDS: Aspirin Chewable 81 MG TAB PO SCH (10:04)
[2023-03-28] MEDS: Cholecalciferol 1,000 UNITS (25 MCG) TAB PO SCH (10:05)
[2023-03-28] MEDS: clonazePAM 0.5 MG TAB PO PRN (10:05)
[2023-03-28] MEDS: Cyclobenzaprine 10 MG TAB PO PRN (10:05)
[2023-03-28] MEDS: Saccharomyces boulardii 250 MG CAP PO SCH (10:06)
[2023-03-28] MEDS: Metoprolol Tartrate 25 MG TAB PO SCH ×2 (10:06→20:58)
[2023-03-28] MEDS: Venlafaxine HCl XR 75 MG CAP PO SCH (10:06)
[2023-03-28] MEDS: Potassium Chloride 20 MEQ TAB PO SCH (10:06)
[2023-03-28] MEDS: Lisinopril 20 MG TAB PO SCH (10:07)
[2023-03-28] MEDS: Amiodarone 200 MG TAB PO SCH (10:07)
[2023-03-28] MEDS: Gabapentin 300 MG CAP PO SCH ×2 (10:08→20:58)
[2023-03-28] MEDS: Apixaban 5 MG TAB PO SCH ×2 (10:08→20:58)
[2023-03-28] MEDS: Mometasone/Formoterol 200/5 60 PUFF INH SCH ×2 (10:10→17:59)
[2023-03-28] MEDS: Fluticasone Propionate Nasal Spray 16 gm Bottle NASAL SCH ×2 (10:10→21:02)
[2023-03-28] MEDS: Guaifenesin DM 100-10/5 ML UDCUP PO PRN (15:43)
[2023-03-28] MEDS: traZODone HCl 50 MG TAB PO SCH (20:58)
[2023-03-28] MEDS: Atorvastatin Calcium 10 MG TAB PO SCH (20:58)
[2023-03-29] MEDS: HYDROcodone/Acetaminophen 10/325 mg Tablet PO SCH ×4 (05:23→22:29)
[2023-03-29] MEDS: Ipratropium/Albuterol 3 ML NEB NEB SCH ×4 (05:24→22:30)
[2023-03-29] MEDS: Mometasone/Formoterol 200/5 60 PUFF INH SCH ×2 (05:34→18:14)
[2023-03-29] MEDS: Fluticasone Propionate Nasal Spray 16 gm Bottle NASAL SCH ×2 (10:05→21:46)
[2023-03-29] MEDS: Guaifenesin DM 100-10/5 ML UDCUP PO PRN ×2 (10:07→18:14)
[2023-03-29] MEDS: clonazePAM 0.5 MG TAB PO PRN (10:08)
[2023-03-29] MEDS: Cyclobenzaprine 10 MG TAB PO PRN (10:08)
[2023-03-29] MEDS: Aspirin Chewable 81 MG TAB PO SCH (10:08)
[2023-03-29] MEDS: Cholecalciferol 1,000 UNITS (25 MCG) TAB PO SCH (10:09)
[2023-03-29] MEDS: Saccharomyces boulardii 250 MG CAP PO SCH (10:09)
[2023-03-29] MEDS: Potassium Chloride 20 MEQ TAB PO SCH (10:09)
[2023-03-29] MEDS: Apixaban 5 MG TAB PO SCH ×2 (10:09→21:45)
[2023-03-29] MEDS: Lisinopril 20 MG TAB PO SCH (10:09)
[2023-03-29] MEDS: Gabapentin 300 MG CAP PO SCH ×2 (10:10→21:46)
[2023-03-29] MEDS: Amiodarone 200 MG TAB PO SCH (10:12)
[2023-03-29] MEDS: Metoprolol Tartrate 25 MG TAB PO SCH ×2 (10:12→21:46)
[2023-03-29] MEDS: Nystatin 500,000 UNITS/5 ML UDCUP SSW SCH ×4 (10:13→21:45)
[2023-03-29] MEDS: Venlafaxine HCl XR 75 MG CAP PO SCH (10:13)
[2023-03-29] MEDS: traZODone HCl 50 MG TAB PO SCH (21:45)
[2023-03-29] MEDS: Atorvastatin Calcium 10 MG TAB PO SCH (21:46)
[2023-03-30] MEDS: HYDROcodone/Acetaminophen 10/325 mg Tablet PO SCH ×2 (04:13→10:11)
[2023-03-30] MEDS: Ipratropium/Albuterol 3 ML NEB NEB SCH ×2 (04:15→10:12)
[2023-03-30 05:27] VITALS: TEMP 98
[2023-03-30] MEDS: Mometasone/Formoterol 200/5 60 PUFF INH SCH ×2 (06:14→08:36)
[2023-03-30] MEDS: Fluticasone Propionate Nasal Spray 16 gm Bottle NASAL SCH (08:34)
[2023-03-30] MEDS: Cholecalciferol 1,000 UNITS (25 MCG) TAB PO SCH (08:35)
[2023-03-30] MEDS: Lisinopril 20 MG TAB PO SCH (08:35)
[2023-03-30] MEDS: Venlafaxine HCl XR 75 MG CAP PO SCH (08:35)
[2023-03-30] MEDS: Potassium Chloride 20 MEQ TAB PO SCH (08:35)
[2023-03-30] MEDS: Saccharomyces boulardii 250 MG CAP PO SCH (08:35)
[2023-03-30] MEDS: Aspirin Chewable 81 MG TAB PO SCH (08:35)
[2023-03-30] MEDS: Amiodarone 200 MG TAB PO SCH (08:36)
[2023-03-30] MEDS: Apixaban 5 MG TAB PO SCH (08:36)
[2023-03-30] MEDS: Gabapentin 300 MG CAP PO SCH (08:36)
[2023-03-30] MEDS: Metoprolol Tartrate 25 MG TAB PO SCH (08:36)
[2023-03-30] MEDS: Nystatin 500,000 UNITS/5 ML UDCUP SSW SCH (08:36)
[2023-03-30 08:37] VITALS: BP 150/85
[2023-03-30] MEDS ORDERED: Collagenase 250 UNITS/GM Ointment 30 GM TUBE TOP SCH (11:30)
== END 2023-03-30 12:00 | disposition home or self-care (01) | DRG 947 ==
LOC: BURMED 18:50
PROVIDERS: ADMIT Family Medicine; ATTEND Nurse Practitioner
PROC: 5A0935A Assistance with Respiratory Ventilation, Less than 24 Consecutive Hours, High Flow/Velocity Cannula (ICD-10-PCS; principal; 2023-03-11)
DX: R53.81 Other malaise (principal); J15.9 Unspecified bacterial pneumonia; J80 Acute respiratory distress syndrome; Z68.41 Body mass index [BMI] 40.0-44.9, adult; I10 Essential (primary) hypertension; E66.9 Obesity, unspecified; J45.909 Unspecified asthma, uncomplicated; I48.0 Paroxysmal atrial fibrillation; D64.9 Anemia, unspecified; E11.9 Type 2 diabetes mellitus without complications; R53.1 Weakness; J44.9 Chronic obstructive pulmonary disease, unspecified; M54.9 Dorsalgia, unspecified; G43.909 Migraine, unspecified, not intractable, without status migrainosus; N61.0 Mastitis without abscess; E87.6 Hypokalemia; F17.210 Nicotine dependence, cigarettes, uncomplicated; G89.4 Chronic pain syndrome; E03.9 Hypothyroidism, unspecified; E78.5 Hyperlipidemia, unspecified; M79.7 Fibromyalgia; Z90.49 Acquired absence of other specified parts of digestive tract; Z79.899 Other long term (current) drug therapy; Z88.2 Allergy status to sulfonamides; Z79.82 Long term (current) use of aspirin; Z90.710 Acquired absence of both cervix and uterus; Z98.890 Other specified postprocedural states; Z79.890 Hormone replacement therapy
CPT/HCPCS: 36415; 71045; 80048; 82274; 84132; 85014; 85018; 85025; 85049; 94640; 97602; J1885; J7620; Q0162